=== PATIENT | female | born 1970 | race Hispanic/Latino ===

== ENCOUNTER → 2018-01-12 | Outpatient (CLI) | payer MEDICAID | END | disposition home or self-care (01) | LOC: RAH 13:32 | PROVIDERS: ATTEND Family Medicine | DX: R92.8 Other abnormal and inconclusive findings on diagnostic imaging of breast (principal) | CPT/HCPCS: 76641 ==

== ENCOUNTER 2021-01-19 22:51 | Emergency (ER) | payer MEDICAID ==
[2021-01-19] MEDS ORDERED: HALOPERIDOL LACTATE 5 MG/ML VIAL ONE (23:21)
[2021-01-19] MEDS ORDERED: DiphenhydrAMINE HCL 50 MG/ML VIAL ONE (23:21)
[2021-01-19 23:23] LABS: BASOPHILS % (AUTO) 0.6 % (0.0-5.0); EOSINOPHILS % (AUTO) 2.6 % (0.0-8.0); HEMATOCRIT 37.6 % (36-48); LYMPHOCYTES % (AUTO) 30.8 % (21.0-51.0); MEAN CORPUSCULAR HEMOGLOBIN 22.6 pg (27.0-33.0); MEAN CORPUSCULAR HGB CONC 29.5 g/dL (32.0-36.0); MEAN CORPUSCULAR VOLUME 76.6 fL (79-99); MONOCYTES % (AUTO) 6.2 % (3.0-13.0); NEUTROPHILS % (AUTO) 59.6 % (40.0-77.0); PLATELET COUNT (AUTO) 408 K/uL (130-400); RED BLOOD CELL COUNT(AUTO) 4.91 MIL/uL (4.00-5.50); RED CELL DISTRIBUTION WIDTH 16.7 % (11.0-15.5); WHITE BLOOD COUNT (AUTO) 9.7 K/uL (4.8-10.8)
[2021-01-19 23:35] LABS: CARBON DIOXIDE 26 mmol/L (21-32); CHLORIDE 107 mmol/L (101-111); CREATININE 0.7 mg/dL (0.5-1.5); GLOMERULAR FILTR. RATE CALC 95 mL/min (>60); GLUCOSE,RANDOM 128 mg/dL (70-105); POTASSIUM 3.1 mmol/L (3.5-5.1); SODIUM SERUM 141 mmol/L (136-145); UREA NITROGEN, BLOOD 12 mg/dL (7-18)
[2021-01-19 23:38] LABS: ALANINE AMINOTRANSFERASE 21 U/L (12-78); ALBUMIN 3.3 g/dL (3.5-5.0); ASPARTATE AMINOTRANSFERASE 8 U/L (10-37); BILIRUBIN,TOTAL 0.2 mg/dL (0.2-1.0); TOTAL PROTEIN, SERUM 7.7 g/dL (6.0-8.3)
[2021-01-19 23:39] LABS: ALCOHOL, BLOOD < 3 mg/dL (0-10)
== END 2021-01-20 02:45 | disposition home or self-care (01) ==
LOC: EDH 22:51
DX: G44.219 Episodic tension-type headache, not intractable (principal); Z20.822 Contact with and (suspected) exposure to COVID-19; F41.9 Anxiety disorder, unspecified; I10 Essential (primary) hypertension; Z90.49 Acquired absence of other specified parts of digestive tract
CPT/HCPCS: 36415; 71045; 80053; 85025; 87426; 93005; 96372; 96374; 99285; J1200; J1630; U0003

== ENCOUNTER 2022-04-17 21:28 | Emergency (ER) | payer MEDICAID ==
[~2022-04-17] VITALS: Ht 157.5 cm; Wt 93.4 kg
[2022-04-17] MEDS ORDERED: 0.9%NACL 1000ML 1,000 ML IV SCH (22:00)
[2022-04-17] MEDS ORDERED: ACETAMINOPHEN 500 MG TABLET PO ONE (22:00)
[2022-04-17 22:01] LABS: BASOPHILS % (AUTO) 0.4 % (0.0-5.0); EOSINOPHILS % (AUTO) 1.3 % (0.0-8.0); HEMATOCRIT 32.9 % (36-48); LYMPHOCYTES % (AUTO) 16.9 % (21.0-51.0); MEAN CORPUSCULAR HEMOGLOBIN 24.1 pg (27.0-33.0); MEAN CORPUSCULAR VOLUME 77.6 fL (79-99); MONOCYTES % (AUTO) 6.2 % (3.0-13.0); NEUTROPHILS % (AUTO) 74.8 % (40.0-77.0); PLATELET COUNT (AUTO) 366 K/uL (130-400); RED BLOOD CELL COUNT(AUTO) 4.24 MIL/uL (4.00-5.50); RED CELL DISTRIBUTION WIDTH 16.6 % (11.0-15.5); WHITE BLOOD COUNT (AUTO) 13.4 K/uL (4.8-10.8)
[2022-04-17 22:19] LABS: ALBUMIN 2.7 g/dL (3.5-5.0); BILIRUBIN,TOTAL 0.3 mg/dL (0.2-1.0); CREATININE 0.8 mg/dL (0.5-1.5); TOTAL PROTEIN, SERUM 7.4 g/dL (6.0-8.3)
[2022-04-17 22:25] LABS: APPEARANCE,URINE Cloudy (CLEAR); BILIRUBIN,URINE Negative (NEGATIVE); COLOR,URINE Yellow (YELLOW); GLUCOSE, URINE (UA) Negative (NEGATIVE); KETONES,URINE Negative (NEGATIVE); LEUKOCYTE ESTERASE ,URINE Large (NEGATIVE); NITRATE,URINE Positive (NEGATIVE); OCCULT BLOOD,URINE Large (NEGATIVE); PH,URINE 7.5 (5.0-8.0); PROTEIN,URINE POS 1+ mg/dL (NEGATIVE)
[2022-04-17 22:29] LABS: POTASSIUM 2.7 mmol/L (3.5-5.1)
[2022-04-17 22:30] LABS: HCG,QUAL RESULT NEGATIVE (NEGATIVE)
[2022-04-17 22:51] LABS: BACTERIA,URINE Many /HPF (None Seen); MUCUS,URINE Rare LPF (None Seen); SQUAMOUS EPITHELIAL CELL,UR Few /HPF (0-2)
[2022-04-17] MEDS ORDERED: ONDANSETRON 4MG INJ IVP ONE (23:30)
[2022-04-17] MEDS ORDERED: POTASSIUM BICARB/CIT AC 25 MEQ TABLET.EFF PO ONE (23:30)
[2022-04-17] MEDS ORDERED: CEFTRIAXONE 2GM VIAL IVP ONE (23:30)
[2022-04-18] MEDS ORDERED: 0.9%NACL 1000ML 1,000 ML IV ONE
[2022-04-18] MEDS ORDERED: KETOROLAC 30MG VIAL (30MG/ML) IVP ONE
[2022-04-18 01:43] VITALS: BP 117/73
[2022-04-18] MEDS ORDERED: IBUP-2070 PO (01:43)
[2022-04-18] MEDS ORDERED: PROM25TA7 PO (01:43)
[2022-04-18] MEDS ORDERED: CIPR-278 PO (01:43)
== END 2022-04-18 02:24 | disposition home or self-care (01) ==
LOC: EDH 21:28
DX: N12 Tubulo-interstitial nephritis, not specified as acute or chronic (principal); E87.6 Hypokalemia; Z20.822 Contact with and (suspected) exposure to COVID-19; I10 Essential (primary) hypertension; Z90.49 Acquired absence of other specified parts of digestive tract
CPT/HCPCS: 36415 ×2; 76770; 80053; 81001; 81025; 83605 ×2; 85025; 87040 ×2; 87077; 87088; 87186; 87635; 87804 ×2; 87880; 93005; 96361 ×2; 96374; 96375; 99285; C9803; J0696; J1885; J2405